=== PATIENT | male | born 1950 | race Caucasian/White ===

== ENCOUNTER 2017-02-05 14:12 | Emergency (ER) | payer OTHER, MEDICARE ==
[~2017-02-05] VITALS: Ht 175.3 cm; Wt 61.2 kg
[~2017-02-05 14:12] MED LIST: ALBIPROI; ALBIPROI INH; ALBU90OI6; ALBU90OI61 INH; CARI350 PO; COMBIVENT RESPIM4 GM IH; DIAZ5 PO; FLUSAL2505 IH; HYDACE10B PO; IBUP800 PO; LEVO750 PO; METCAR500 PO; METCAR750 PO; METPRE4DP PO; MORP15ER PO; OXYC10ER PO; OXYC10TA19 PO; PRED10 PO; Prednisone20 MG PO; TIOT18 IH; TRAZ150T57 PO; TRAZODONE PO; Zithromax250 MG PO
[2017-02-05] MEDS ORDERED: OXYC10TA19 (14:58)
[2017-02-05] MEDS ORDERED: Robaxin750 MG PO (14:58)
[2017-02-05] MEDS ORDERED: OMEPRAZOLE CAP 20M PO (14:58)
[2017-02-05] MEDS ORDERED: TRAZ100 PO (14:58)
[2017-02-05] MEDS ORDERED: DULERA 200 MCG/13 GM INH (14:58)
[2017-02-05] MEDS ORDERED: LORA1 PO (16:27)
[2017-02-05 17:12] LABS: U Amphetamine Screen Not Detected; U Barbituate Screen Not Detected; U Benzodiazapine Screen DETECTED; U Buprenorphine Screen Not Detected; U Cannabinoids Screen Not Detected; U Cocaine Screen Not Detected; U Methadone Screen Not Detected; U Methamphetamine Screen Not Detected; U Opiates Screen Not Detected; U Oxycodone Screen DETECTED; U Phencyclidine Screen Not Detected; U Propoxyphene Screen Not Detected
[2017-02-05] MEDS ORDERED: Ativan1 MG PO (17:27)
[2017-09-29] MEDS ORDERED: GABA600 PO (09:40)
[2017-09-29] MEDS ORDERED: IBUP600 PO (09:40)
[2017-09-29] MEDS ORDERED: TIOT18 INH (09:41)
[2017-09-29] MEDS ORDERED: IPRATROPIUM-ALBUTERO NEB (09:43)
== END 2017-02-05 17:37 | disposition home or self-care (01) ==
LOC: ER 14:12
PROVIDERS: Physician Assistant
DX: S16.1XXA Strain of muscle, fascia and tendon at neck level, initial encounter (principal); S39.012A Strain of muscle, fascia and tendon of lower back, initial encounter; J44.9 Chronic obstructive pulmonary disease, unspecified; F17.200 Nicotine dependence, unspecified, uncomplicated; Z79.899 Other long term (current) drug therapy; Z86.19 Personal history of other infectious and parasitic diseases; V49.9XXA Car occupant (driver) (passenger) injured in unspecified traffic accident, initial encounter; Y92.411 Interstate highway as the place of occurrence of the external cause
CPT/HCPCS: 70450; 72100; 72125; 99284

== ENCOUNTER 2017-06-07 08:30 | Day surgery (SDC) | payer MEDICARE ==
[~2017-06-07] VITALS: Ht 165.1 cm; Wt 70.8 kg
[~2017-06-07 08:30] MED LIST changes: +Ativan1 MG PO; +DULERA 200 MCG/13 GM INH; +LORA1 PO; +OMEPRAZOLE CAP 20M; +OXYC10TA19; +Robaxin750 MG; +TRAZ100 PO
== END 2017-06-07 10:40 | disposition home or self-care (01) ==
LOC: ORSCSDS 08:30
PROVIDERS: Internal Medicine Gastroenterology
PROC: 0D598ZZ Destruction of Duodenum, Via Natural or Artificial Opening Endoscopic (ICD-10-PCS; principal; 2017-06-07 10:30)
PROC: 0DB58ZX Excision of Esophagus, Via Natural or Artificial Opening Endoscopic, Diagnostic (ICD-10-PCS; principal; 2017-06-07 10:30)
DX: K22.710 Barrett's esophagus with low grade dysplasia (principal); K31.819 Angiodysplasia of stomach and duodenum without bleeding; K31.89 Other diseases of stomach and duodenum; K74.60 Unspecified cirrhosis of liver; B19.20 Unspecified viral hepatitis C without hepatic coma; J44.9 Chronic obstructive pulmonary disease, unspecified; F17.210 Nicotine dependence, cigarettes, uncomplicated; Z79.899 Other long term (current) drug therapy
CPT/HCPCS: 88305

== ENCOUNTER 2017-10-05 08:17 | Day surgery (SDC) | payer MEDICARE ==
[~2017-10-05] VITALS: Ht 170.2 cm; Wt 72.6 kg
[~2017-10-05 08:17] MED LIST changes: +GABA600 PO; +IBUP600 PO; +IPRATROPIUM-ALBUTERO NEB; -OMEPRAZOLE CAP 20M; +OMEPRAZOLE CAP 20M PO; -Robaxin750 MG; +Robaxin750 MG PO; +TIOT18 INH
== END 2017-10-05 23:01 | disposition home or self-care (01) ==
LOC: ORSCMMR 08:17 → ORD 09:45 → ORSCMMR 09:45
PROVIDERS: Surgery
PROC: 0WQF0ZZ Repair Abdominal Wall, Open Approach (ICD-10-PCS; principal; 2017-10-05 09:45)
DX: K43.9 Ventral hernia without obstruction or gangrene (principal); I10 Essential (primary) hypertension; J44.9 Chronic obstructive pulmonary disease, unspecified; N40.0 Benign prostatic hyperplasia without lower urinary tract symptoms; Z86.73 Personal history of transient ischemic attack (TIA), and cerebral infarction without residual deficits; B19.20 Unspecified viral hepatitis C without hepatic coma; Z79.899 Other long term (current) drug therapy; F17.210 Nicotine dependence, cigarettes, uncomplicated
CPT/HCPCS: J0690; J2250; J2405; J3010; J7120

== ENCOUNTER 2020-06-26 20:15 | Inpatient (IN) | payer MEDICARE, OTHER ==
[~2020-06-26] VITALS: Ht 172.7 cm; Wt 63.4 kg
[~2020-06-26 20:15] MED LIST changes: +COMBIVENT RESPIM4 G1 INH; -COMBIVENT RESPIM4 GM IH; +OMEP20ER PO; -OMEPRAZOLE CAP 20M PO; -TRAZODONE PO; +Trazodone HCl300 MG PO
[2020-06-26 20:44] LABS: BASOPHILS ABSOLUTE AUTO 0.05 K/mm3 (0.00-0.23); BASOPHILS PERCENT AUTO 0 % (0-2); EOSINOPHILS ABSOLUTE AUTO 0.38 K/mm3 (0.00-0.68); EOSINOPHILS PERCENT AUTO 3 % (0-6); Hematocrit 40.2 % (37.0-53.0); Hemoglobin 13.5 g/dL (13.5-17.5); IMMATURE GRAN ABSOLUTE AUTO 0.03 K/mm3 (0.00-0.10); IMMATURE GRAN PERCENT AUTO 0 % (0-1); LYMPHOCYTES ABSOLUTE AUTO 3.48 K/mm3 (0.84-5.20); LYMPHOCYTES PERCENT AUTO 30 % (21-46); MONOCYTES ABSOLUTE AUTO 1.04 K/mm3 (0.16-1.47); MONOCYTES PERCENT AUTO 9 % (4-13); Mean Corpuscular HGB 31.7 pg (26.0-34.0); Mean Corpuscular HGB Conc 33.6 g/dL (31.5-36.5); Mean Corpuscular Volume 94 fL (80-100); Mean Platelet Volume 9.1 fL (9.1-12.4); NEUTROPHILS ABSOLUTE AUTO 6.45 K/mm3 (1.96-9.15); NEUTROPHILS PERCENT AUTO 57 % (41-73); Platelet Count 276 K/mm3 (150-400); RDW Coefficient Variation 13.2 % (11.7-14.2); RDW Standard Deviation 45.3 fL (35.1-46.3); Red Blood Cell Count 4.26 M/mm3 (4.30-5.90); White Blood Cell Count 11.43 K/mm3 (4.00-11.30)
[2020-06-26] MEDS ORDERED: TRELEGY ELLIPT1 EAC1 INH (20:46)
[2020-06-26 21:13] LABS: Alanine Aminotransfer (ALT/SGP 24 U/L (12-78); Albumin, Blood 3.6 g/dL (3.4-5.0); Albumin/Globulin Ratio 0.9 (0.8-1.8); Alk Phos 71 U/L (50-136); Anion Gap 5 mmol/L (6-16); Aspartate Aminotrans (AST/SGOT 19 U/L (12-37); Bilirubin, Total 0.3 mg/dL (0.1-1.0); Blood Urea Nitrogen 17 mg/dL (8-24); Bun/Creatinine Ratio 22.4 (12.0-20.0); CO2, Blood 24 mmol/L (21-32); Calcium, Blood 8.9 mg/dL (8.5-10.1); Chloride, Blood 107 mmol/L (98-108); Creatinine, Blood 0.76 mg/dL (0.60-1.20); Glomerular Filtration Rate >60 (60-); Glucose, Blood 98 mg/dL (70-99); Potassium, Blood 3.7 mmol/L (3.5-5.5); Sodium, Blood 136 mmol/L (136-145); Total Protein, Blood 7.6 g/dL (6.4-8.2); Troponin I <0.015 ng/mL (0.000-0.040)
[2020-06-27 03:45] LABS: BASOPHILS ABSOLUTE AUTO 0.04 K/mm3 (0.00-0.23); BASOPHILS PERCENT AUTO 0 % (0-2); EOSINOPHILS ABSOLUTE AUTO 0.32 K/mm3 (0.00-0.68); EOSINOPHILS PERCENT AUTO 4 % (0-6); Hematocrit 38.5 % (37.0-53.0); Hemoglobin 12.9 g/dL (13.5-17.5); IMMATURE GRAN ABSOLUTE AUTO 0.05 K/mm3 (0.00-0.10); IMMATURE GRAN PERCENT AUTO 1 % (0-1); LYMPHOCYTES ABSOLUTE AUTO 2.64 K/mm3 (0.84-5.20); LYMPHOCYTES PERCENT AUTO 29 % (21-46); MONOCYTES PERCENT AUTO 11 % (4-13); Mean Corpuscular HGB 31.6 pg (26.0-34.0); Mean Corpuscular HGB Conc 33.5 g/dL (31.5-36.5); Mean Corpuscular Volume 94 fL (80-100); Mean Platelet Volume 9.2 fL (9.1-12.4); NEUTROPHILS ABSOLUTE AUTO 5.18 K/mm3 (1.96-9.15); NEUTROPHILS PERCENT AUTO 56 % (41-73); Platelet Count 258 K/mm3 (150-400); RDW Standard Deviation 45.1 fL (35.1-46.3); Red Blood Cell Count 4.08 M/mm3 (4.30-5.90); White Blood Cell Count 9.23 K/mm3 (4.00-11.30)
[2020-06-27 04:00] LABS: International Normalized Ratio 1.13; Prothrombin Time Results 12.1 Sec (9.7-11.5)
[2020-06-27 04:07] LABS: Alanine Aminotransfer (ALT/SGP 20 U/L (12-78); Albumin, Blood 3.2 g/dL (3.4-5.0); Albumin/Globulin Ratio 0.9 (0.8-1.8); Alk Phos 64 U/L (50-136); Anion Gap 2 mmol/L (6-16); Aspartate Aminotrans (AST/SGOT 23 U/L (12-37); Bilirubin, Total 0.4 mg/dL (0.1-1.0); Blood Urea Nitrogen 18 mg/dL (8-24); Bun/Creatinine Ratio 23.7 (12.0-20.0); CO2, Blood 28 mmol/L (21-32); Calcium, Blood 8.7 mg/dL (8.5-10.1); Chloride, Blood 108 mmol/L (98-108); Creatinine, Blood 0.76 mg/dL (0.60-1.20); Globulin, Blood 3.7 g/dL (2.2-4.0); Glomerular Filtration Rate >60 (60-); Glucose, Blood 129 mg/dL (70-99); Potassium, Blood 3.3 mmol/L (3.5-5.5); Sodium, Blood 138 mmol/L (136-145); Total Protein, Blood 6.9 g/dL (6.4-8.2)
--- NOTE | 2020-06-27 10:57 | NUR ---
PT ALERT AND ORIENTED X4. SLEEPY THIS AM. ROOM AIR SATING ABOVE 94%. SOB WHEN UP TO BATHROOM, LUNGS SOUNDING WHEEZY. RESPIRATORY IN AND INHALER USED. TELE SHOWING SINUS GUNNAR WITH PVC'S AND HR 57. DENIES CHEST PAIN/PRESSURE THIS AM. VITAL SIGNS STABLE. NEURO WNL. CARDIOLOGY CONSULTED. ECHO DONE. CALL LIGHT IN REACH. WILL CONTINUE TO MONITOR.
--- NOTE | 2020-06-27 12:20 | NUR ---
UPDATE: Flag Football Coach spoke with patient about need for angiogram. When consent form was taken to Patient he stated "what happens if I don't sign?" Informed him that the procedure would not happen. Pt stated concerns about [facility], stating this is "the worst" hospital. States he is very concerned about the procedure. Informed pt that whether or not to have it is his choice but that it is being recommended because of his elevated troponin, echo results and chest pain. Pt agreed to sign. Covid will be completed and heart center notified.
--- NOTE | 2020-06-27 12:59 | NUR ---
AMA- Pt informed RN that he did not want to stay, that he wanted to leave against medical advice because he couldn't pay for the visit. Pt was informed that financial services had already been contacted and that they would come up to talk to him about discounts and payment plans. Pt states that this wouldn't matter, he still wouldn't be able to afford it. Pt was informed of abnormal stress test and need for angiogram. Pt still declined wanting to stay. Pt was given education regarding risks of leaving AMA, including, chest pain, cardiac arrhythmia, heart failure, cardiac arrest leading to . Pt verbalized understanding of this stating "it is cheaper to ". Pt was encouraged to return to ER if symptoms persist and if he decided to receive treatment. IV was discontinued and pt ambulated out.
--- NOTE | 2020-06-27 13:11 | NUR ---
PT LEAVING AMA, SEE PREVIOUS NOTE BY CHARGE NURSE FOR DETAILS. IV TAKEN OUT PER PROTOCOL. TELE REMOVED. NO ACUTE CHANGES THIS MORNING OR AFTERNOON. VITALS REMAINED STABLE. PT INFORMED OF ALL RISKS, SEE PREVIOUS NOTE. ALSO INFORMED OF THE OPTION FOR FINACIAL ASSISTANCE. PT INFORMED AND EDUCATED ON NEON LIGHT INSTALLER ECHO RESULTS. PT DENIED THE NEED TO STAY. PT DENIED THE NEED TO TALK WITH FINANCIAL TEAM FOR ASSISTANCE OR PAYMENT PLAN OPTIONS. PT LEFT UNIT AMA AT 1254.
[2020-06-27 13:21] LABS: SARS-Cov-2 (COVID-19) PCR, MMC NEGATIVE (NEGATIVE)
== END 2020-06-27 12:54 | disposition left against medical advice (07) | DRG 282 ==
LOC: ER 20:15 → PCU 23:50
PROVIDERS: Internal Medicine Cardiovascular Disease; Physician Assistant; ADMIT Internal Medicine
DX: I21.4 Non-ST elevation (NSTEMI) myocardial infarction (principal); F17.210 Nicotine dependence, cigarettes, uncomplicated; G89.29 Other chronic pain; J43.9 Emphysema, unspecified; Z20.822 Contact with and (suspected) exposure to COVID-19
CPT/HCPCS: 36415; 71046; 80053; 83690; 84484; 85025; 85610; 85730; 93005; 93010; 93306; 94640; 94760; 96374; 99285-25; A9270; G0378; J1644; U0004

== ENCOUNTER 2020-07-04 08:24 | Day surgery (SDC) | payer OTHER ==
[~2020-07-04 08:24] MED LIST changes: +TRELEGY ELLIPT1 EAC1 INH
[2020-07-04] MEDS ORDERED: TRELEGY ELLIPT1 EAC1 INH (09:26)
[2020-07-04] MEDS ORDERED: ATOR40TA PO (09:27)
[2020-07-04] MEDS ORDERED: Aspir 8181 MG PO (09:27)
[2020-07-04] MEDS ORDERED: METO25ER PO (09:27)
[2020-07-04] MEDS ORDERED: NITR.4SL SL (09:28)
--- NOTE | 2020-07-04 09:41 | NUR ---
LUNG TONES COARSE ALL MCKEON.
--- NOTE | 2020-07-04 13:18 | NUR ---
pt arrived to [facility]; states hungry and back hurting 09/16. states chest pain 04/16. Given food and drink and Dr Mckeon contacted with request for pain medication. Pt states that he smokes a bong at home until he passes out if he has pain, but since he can't do that here he will settle for 10 mg oxycodone instead.
--- NOTE | 2020-07-04 13:40 | NUR ---
RIGHT arm TR band is in place, distal pulse well palpable, fingers are pink, warm an with brisk capillary refill. TR band has been reportedly inflated to 9 cc . pt denies any pain except for pressure at the TR balloon site.
--- NOTE | 2020-07-04 14:53 | NUR ---
Dr. Mckeon here to see the pt. Pt states his chest discomfort is back to normal, and back pain is better, the edge was taken off. States he smokes marijuana all day long at home for pain relief. Lung sounds are wheezing and crackles throughout. spo2 95% on room air.
--- NOTE | 2020-07-04 14:57 | NUR ---
2 cc air removed from the TR band at this time. Site remains without bleeding, hematoma, soft non-tender.
--- NOTE | 2020-07-04 16:01 | NUR ---
TR band is fully deflated at this time and right radial site remains without bleeding, swelling or hematoma. Pt states that his chest pain is 0, and his back pain is about 7.10 States that the manageable pain level of his back pain would be 2/10. The marijuana simply makes him not care about the pain, he said, but doesn't really reduce the pain.
--- NOTE | 2020-07-04 16:52 | NUR ---
Pt is sitting up in recliner, drinking coffee. States that the bed is very uncomfortable aND with his chronic back pain it is better for him to get up and move around for relief.
--- NOTE | 2020-07-04 18:13 | NUR ---
Pt denies chest pain, states his pain is in his back right now. Percocet given for pain as ordered prn. IV fluids complete; pt is ambulatory independently to the bathroom to void. White immoblizer board in place on right wrist to prevent extension/flexion and use of arm. Pt verbalized understanding of activity restrictions due to arterial puncture for angiogram.
--- NOTE | 2020-07-04 18:54 | NUR ---
Pt ambulatory in the hallways of the unit, no c/o pain/discomfort or dyspnea.
--- NOTE | 2020-07-04 21:53 | NUR ---
PT UPDATE DR. BAEZA IN TO SEE PT. EDUCATED PT ON IMPORTANCE OF TAKING PLAVIX TO AVOID CLOTS. IN REGARDS TO ECG WHICH WAS ORDERED POST PROCEDURE THIS AFTERNOON, MD BAEZA GAVE VERBAL ORDER TO ECG IN AM.
--- NOTE | 2020-07-04 23:09 | NUR ---
PT STABLE. C/O BACK PAIN 7-09/16, TREATED WITH PRN OXYCODONE PER E-MAR. PAIN IMPROVED AND PT RESTING IN BED. PT GIVEN A LOADING DOSE OF PLAVIX, EDUCATION PROVIDED ON THE IMPORTANCE OF CONTINUING PLAVIX AND ASA TO PREVENT BLOOD CLOTS TO HIS STENT IN LAD. VSS, ROOM AIR. NO C/O CHEST PAIN OR SOB. MONITORED VIA TELEMETRY, SINUS IN THE 60'S. RIGHT RADIAL ARMBOARD IN PLACE AT SHIFT CHANGE , SITE IS COVERED WITH A CLEAR DRESSING. NO SIGNS OF HEMATOMA OR DRAINAGE. DR BAEZA IN ROOM AT 2145, STATED THAT PT COULD REMOVE ARMBOARD. IV IN LEFT ARM, FLUSHED WITH NS. SITE IS WNL, COVERED WITH CLEAR DRESSING AND WRAPPED WITH COBAN. WILL CONTINUE TO MONITOR.
[2020-07-05 02:14] LABS: BASOPHILS ABSOLUTE AUTO 0.04 K/mm3 (0.00-0.23); BASOPHILS PERCENT AUTO 1 % (0-2); EOSINOPHILS PERCENT AUTO 5 % (0-6); Hematocrit 37.8 % (37.0-53.0); IMMATURE GRAN ABSOLUTE AUTO 0.04 K/mm3 (0.00-0.10); IMMATURE GRAN PERCENT AUTO 1 % (0-1); LYMPHOCYTES PERCENT AUTO 28 % (21-46); MONOCYTES ABSOLUTE AUTO 0.94 K/mm3 (0.16-1.47); MONOCYTES PERCENT AUTO 11 % (4-13); Mean Corpuscular HGB Conc 34.4 g/dL (31.5-36.5); Mean Corpuscular Volume 93 fL (80-100); Mean Platelet Volume 9.1 fL (9.1-12.4); NEUTROPHILS ABSOLUTE AUTO 4.68 K/mm3 (1.96-9.15); NEUTROPHILS PERCENT AUTO 55 % (41-73); Platelet Count 244 K/mm3 (150-400); RDW Coefficient Variation 13.1 % (11.7-14.2); RDW Standard Deviation 45.2 fL (35.1-46.3); Red Blood Cell Count 4.06 M/mm3 (4.30-5.90)
[2020-07-05 02:44] LABS: Anion Gap 4 mmol/L (6-16); Blood Urea Nitrogen 16 mg/dL (8-24); Bun/Creatinine Ratio 19.7 (12.0-20.0); CO2, Blood 25 mmol/L (21-32); Calcium, Blood 8.4 mg/dL (8.5-10.1); Chloride, Blood 110 mmol/L (98-108); Creatinine, Blood 0.81 mg/dL (0.60-1.20); Glomerular Filtration Rate >60 (60-); Glucose, Blood 90 mg/dL (70-99); Potassium, Blood 3.8 mmol/L (3.5-5.5); Sodium, Blood 139 mmol/L (136-145)
--- NOTE | 2020-07-05 06:20 | NUR ---
SHIFT SUMMARY PT'S VSS REMAINED STABLE, NO ACUTE CHANGES. ABOUT 0300, PT STARTED TO BECOME AGITATED, STATING THAT HIS CHRONIC BACK PAIN WAS 9/10 AND HE WAS UNABLE TO SLEEP DUE TO INTERRUPTIONS. BACK PAIN WAS TREATED WITH PRN PAIN MEDICATION PER EMAR, PT WAS ALLOWED UNINTERRUPTED REST UNTIL O5OO FOR VITALS. PT WAS ABLE TO SLEEP FROM 0330 - 0500. PT DENIES CHEST PAIN OR SOB. HIS RIGHT RADIAL SITE SHOWED NO SIGNS OF HEMATOMA, BLEEDING OR BRUISING. ARMBOARD WAS REMOVED DURING SHIFT, AFTER DR. BAEZA SPOKE WITH THE PT. TELEMETRY REMAINED NSR, IN THE 70'S. EXPIRATORY WHEEZES THROUGH OUT HIS LUNGS, WITH AN OCCASSIONAL COUGH. PT IS A DAILY TOBACCO USER. PT IS ANXIOUS TO BE DISCHARGED, AND HOPES THAT DISCHARGE ORDERS ARE COMPLETED " EARLY POSSIBLE." CALL LIGHT WITHIN REACH, WILL CONTINUE TO MONITOR.
[2020-07-05] MEDS ORDERED: CLOP75 PO (09:33)
[2020-07-05] MEDS ORDERED: IPRAT-ALBUT 0.5-3 ML INH (09:43)
[2020-07-05] MEDS ORDERED: Percocet 10-321 EACH PO (09:53)
== END 2020-07-05 10:05 | disposition home or self-care (01) ==
LOC: MHTC 08:24 → PCU 13:13 → MHTC 07-05 10:05
PROVIDERS: Internal Medicine Cardiovascular Disease
DX: I25.118 Atherosclerotic heart disease of native coronary artery with other forms of angina pectoris (principal); I21.4 Non-ST elevation (NSTEMI) myocardial infarction; E78.2 Mixed hyperlipidemia; J43.9 Emphysema, unspecified; Z72.0 Tobacco use; B19.20 Unspecified viral hepatitis C without hepatic coma
CPT/HCPCS: 36415; 76937; 80048; 84484; 85025; 85347; 92978; 93005; 93010; 93458; 93571; 94640; 94760; 94762; 99152; 99153; A9270; C1725; C1753; C1769; C1874; C1887; C1894; C9600; J0153; J1644; J2250; J3010; J7030; J7050; Q9967